=== PATIENT | male | born 1960 | race Two or more races ===

== ENCOUNTER 2020-10-29 17:52 | Outpatient (CLI) | payer OTHER | END 2020-10-29 19:00 | disposition home or self-care (01) | LOC: LAB 17:52 | PROVIDERS: ATTEND Urology | DX: R97.20 Elevated prostate specific antigen [PSA] (principal) ==

== ENCOUNTER 2020-11-19 08:20 | Outpatient (CLI) | payer OTHER | END 2020-11-19 08:31 | disposition home or self-care (01) | LOC: SONOGRAMA 08:20 | PROVIDERS: ATTEND Urology | DX: C61 Malignant neoplasm of prostate (principal); D29.1 Benign neoplasm of prostate; R97.20 Elevated prostate specific antigen [PSA] ==

== ENCOUNTER 2020-12-10 08:59 | Outpatient (CLI) | payer OTHER | END 2020-12-10 09:08 | disposition home or self-care (01) | LOC: TOM 08:59 | PROVIDERS: ATTEND Urology | DX: K57.90 Diverticulosis of intestine, part unspecified, without perforation or abscess without bleeding (principal); R97.20 Elevated prostate specific antigen [PSA]; F52.21 Male erectile disorder; C61 Malignant neoplasm of prostate ==

== ENCOUNTER 2020-12-18 11:22 | Outpatient (CLI) | payer OTHER | END 2020-12-18 11:32 | disposition home or self-care (01) | LOC: NUCLEAR 11:22 | PROVIDERS: ATTEND Urology | DX: C61 Malignant neoplasm of prostate (principal); R97.20 Elevated prostate specific antigen [PSA]; F52.21 Male erectile disorder | CPT/HCPCS: 78803; A9503 ==